=== PATIENT | female | born 1985 | race Hispanic/Latino ===

== ENCOUNTER 2017-01-02 16:37 | Emergency (ER) | payer MEDICAID, OTHER ==
[2017-01-02 16:48] VITALS: BP 115/75; PULSE 90; RESP 17; TEMP 99; O2SAT 99
--- NOTE | 2017-01-02 18:14 | C.PDOC ---
History Of Present Illness 31 y/o female presents to ED with complaints of left toe pain and swelling increased 1 week ago. Patient denies drainage, fever, streaking of foot or any other complaints at this time. Chief Complaint (Nursing): Lower Extremity Problem/Injury History Per: Patient History/Exam Limitations: no limitations Onset/Duration Of Symptoms: Days Current Symptoms Are (Timing): Still Present Past Medical History Reviewed: Historical Data, Nursing Documentation, Vital Signs Vital Signs: Last Vital Signs Temp 99.0 F 01/02/17 16:44 Pulse 90 01/02/17 16:44 Resp 17 01/02/17 16:44 BP 115/75 01/02/17 16:44 Pulse Ox 99 01/02/17 18:15 - Medical History PMH: Anxiety, Asthma (ALLERGIC), Depression, Gastritis, Hypercholesterolemia ( JUST DIAGNOSED), Kidney Stones (2007), Migraine, Pancreatitis, Chronic Kidney Disease Surgical History: Endoscopy - [facility] Procedures TETANUS TOXOID ADMINIST (07/03/14) Family History: States: Unknown Family Hx - Social History Hx Tobacco Use: No Hx Alcohol Use: No Hx Substance Use: No - Immunization History Hx Tetanus Toxoid Vaccination: No Hx Influenza Vaccination: Yes (2017) Hx Pneumococcal Vaccination: No Review Of Systems Except As Marked, All Systems Reviewed And Found Negative. Constitutional: Negative for: Fever, Chills Musculoskeletal: Positive for: Foot Pain Skin: Negative for: Rash Neurological: Negative for: Weakness, Numbness Physical Exam - Physical Exam Appears: Non-toxic, No Acute Distress Skin: Normal Color, Warm Head: Atraumatic, Normacephalic Cardiovascular: Rhythm Regular, No Murmur Respiratory: Normal Breath Sounds, No Rales, No Rhonchi, No Wheezing Extremity: Normal ROM, Capillary Refill (<2 seconds), No Deformity, Other (Left great toe has ingrown toe nail, slight flunctuance of medial aspect, no drainage , no erythema) Pulses: Left Dorsalis Pedis: Normal, Right Dorsalis Pedis: Normal Neurological/Psych: Oriented x3, Normal Motor, Normal Sensation, Normal Reflexes ED Course And Treatment O2 Sat by Pulse Oximetry: 99 (RA) Pulse Ox Interpretation: Normal Disposition - Disposition Referrals: [facility] Lorena Perez, [Non-Staff] - Disposition: HOME/ ROUTINE Disposition Time: 17:30 Condition: GOOD Additional Instructions: Thank you for letting us take care of you today. Your provider was Dr. Joshi. You were treated for in-grown toenail. The emergency medical care you received today was directed at your acute symptoms. If you were prescribed any medication, please fill it and take as directed. It may take several days for your symptoms to resolve. Return to the Emergency Department if your symptoms worsen, do not improve, or if you have any other problems. Please contact your doctor or call one of the physicians/clinics you have been referred to that are listed on the Patient Visit Information form that is included in your discharge packet. Bring any paperwork you were given at discharge with you along with any medications you are taking to your follow up visit. Our treatment cannot replace ongoing medical care by a primary care provider (PCP) outside of the emergency department. Thank you for allowing the Critical access hospital team to be part of your care today. Follow up with your doctor in 4-5 days if pain persists or redness travels to your foot. Prescriptions: Cephalexin [cephalexin] 500 mg PO BID #10 cap Instructions: Ingrown Nail (ED) - Clinical Impression Clinical Impression: Ingrown nail - Scribe Statement The provider has reviewed the documentation as recorded by the Scribe Roger Crump All medical record entries made by the Renetta were at my direction and personally dictated by me. I have reviewed the chart and agree that the record accurately reflects my personal performance of the history, physical exam, medical decision making, and the department course for this patient. I have also personally directed, reviewed, and agree with the discharge instructions and disposition.
== END 2017-01-02 17:42 | disposition home or self-care (01) ==
LOC: C.ER 16:37
DX: L60.0 Ingrowing nail (principal)

== ENCOUNTER 2017-03-08 16:49 | Emergency (ER) | payer MEDICAID, OTHER ==
[2017-03-08 16:53] VITALS: BP 122/72; PULSE 122; RESP 20; TEMP 99.1; O2SAT 98
--- NOTE | 2017-03-08 17:28 | C.PDOC ---
Time Seen by Provider: 03/08/17 17:13 Chief Complaint (Nursing): Abnormal Skin Integrity Past Medical History Vital Signs: Last Vital Signs Temp 99.1 F 03/08/17 16:50 Pulse 122 H 03/08/17 16:50 Resp 20 03/08/17 16:50 BP 122/72 03/08/17 16:50 Pulse Ox 98 03/08/17 16:50 - Medical History PMH: Anxiety, Asthma (ALLERGIC), Depression, Gastritis, Hypercholesterolemia ( JUST DIAGNOSED), Kidney Stones (2007), Migraine, Pancreatitis, Chronic Kidney Disease Surgical History: Endoscopy - [facility] Procedures TETANUS TOXOID ADMINIST (07/03/14) Family History: States: Unknown Family Hx - Social History Hx Tobacco Use: No Hx Alcohol Use: No Hx Substance Use: No - Immunization History Hx Tetanus Toxoid Vaccination: No Hx Influenza Vaccination: Yes (2016) Hx Pneumococcal Vaccination: No ED Course And Treatment O2 Sat by Pulse Oximetry: 98 Disposition - Disposition Forms: [facility] ([place])
--- NOTE | 2017-03-08 17:42 | C.PDOC ---
History Of Present Illness 32 yo female 25 wks come in for evaluation of painful mass over coccyx area gradually developed for past 4-5 days. Pt sts, noted some draining now from wound. Otherwise, pt denies fever, chills, abd. pain, N/V, denies change in BM or any other active complaints. Ambulate to Ed for evaluation, not in any apparent distress. Time Seen by Provider: 03/08/17 17:13 Chief Complaint (Nursing): Abnormal Skin Integrity History Per: Patient Onset/Duration Of Symptoms: Gradual Past Medical History Reviewed: Historical Data, Nursing Documentation, Vital Signs Vital Signs: Last Vital Signs Temp 99.1 F 03/08/17 16:50 Pulse 122 H 03/08/17 16:50 Resp 20 03/08/17 16:50 BP 122/72 03/08/17 16:50 Pulse Ox 98 03/08/17 16:50 - Medical History PMH: Anxiety, Asthma (ALLERGIC), Depression, Gastritis, Hypercholesterolemia ( JUST DIAGNOSED), Kidney Stones (2007), Migraine, Pancreatitis, Chronic Kidney Disease Surgical History: Endoscopy - [facility] Procedures TETANUS TOXOID ADMINIST (07/03/14) Family History: States: Unknown Family Hx - Social History Hx Tobacco Use: No Hx Alcohol Use: No Hx Substance Use: No - Immunization History Hx Tetanus Toxoid Vaccination: No Hx Influenza Vaccination: Yes (2016) Hx Pneumococcal Vaccination: No Review Of Systems Except As Marked, All Systems Reviewed And Found Negative. Constitutional: Negative for: Fever, Chills ENT: Negative for: Throat Pain Gastrointestinal: Negative for: Nausea, Vomiting, Abdominal Pain, Diarrhea, Constipation, Melena, Hematochezia, Hematemesis Genitourinary: Negative for: Incontinence Musculoskeletal: Negative for: Neck Pain, Back Pain Skin: Positive for: Lesions Neurological: Negative for: Weakness, Numbness Physical Exam - Physical Exam Appears: Well, Non-toxic, No Acute Distress Skin: Normal Color, Warm, Other ((+)small tender mass 2cm diameter over coccyx area, mild erythema, (+) flactulance with mod purulend discharge, self- draining. No proximal streaking.) Gastrointestinal/Abdominal: Other (Gravid) Rectal: Rectal Tone (good), No Hemorrhoids Back: No CVA Tenderness Extremity: No Pedal Edema, No Deformity Neurological/Psych: Oriented x3, Normal Speech ED Course And Treatment O2 Sat by Pulse Oximetry: 98 Pulse Ox Interpretation: Normal Progress Note: On re-eval, pt is afebrile, hemodynamicaly stable. non-toxic. Skin: exam c/w self-draining pilonidal cyst s/p needle aspiration. Wound cx- pending. Abx options discussed with pt, reports "stomach irritation with amoxicillin". Clindamycin offered, risk discussed according, pt understand and agrees. Pt advised to F/U with PMD or ED in 2 days for re-eavl. return if any new changes., - Incision & Drainage Of Abscess Prep Used: Betadine Procedure: Drained Pus (needle aspiration gauge #18 with 2ml drained pus), Cultures Obtained And Sent To Lab Disposition Counseled Patient/Family Regarding: Studies Performed, Diagnosis, Need For Followup, Rx Given - Disposition Referrals: at [facility] [Outside] Disposition: HOME/ ROUTINE Disposition Time: 17:46 Condition: STABLE Additional Instructions: warm salty water sitz baths Take antibiotic as prescribed Follow up with PMD or ED in 2 days for re-evaluation. Return to ED if any worsening or new changes. Prescriptions: Clindamycin [Cleocin] 300 mg PO TID #21 cap Instructions: Abscess Incision and Drainage (ED), Abscess (ED) Forms: [facility] ([place]) - Clinical Impression Clinical Impression: Pilonidal cyst
== END 2017-03-08 17:58 | disposition home or self-care (01) ==
LOC: C.ER 16:49
DX: L05.91 Pilonidal cyst without abscess (principal)

== ENCOUNTER 2017-08-17 07:50 | Emergency (ER) | payer MEDICAID, OTHER ==
[2017-08-17 07:56] VITALS: BMI 29.2
[2017-08-17] MEDS ORDERED: Sodium Chloride 0.9% 1,000 ML IV ONE (08:14)
--- NOTE | 2017-08-17 08:25 | C.PDOC ---
History Of Present Illness 32 yo female w/PMHx of anxiety come in for evaluation of Right flank pain developed 2 days ago radiating to Right mid/lower abdomen associated with nausea. Pt admits, previous hx of similar pain dx with kidney stones. Otherwise , pt denies fever, chills, headache, dizziness, neck pain, CP, SOB, V/D, UTI sx , hematuria. At present time, appears in severe pain. Time Seen by Provider: 08/17/17 08:03 Chief Complaint (Nursing): Back Pain History Per: Patient Past Medical History Reviewed: Historical Data, Nursing Documentation, Vital Signs Vital Signs: Last Vital Signs Temp 98.6 F 08/17/17 07:56 Pulse 87 08/17/17 11:35 Resp 18 08/17/17 11:35 BP 127/86 08/17/17 11:35 Pulse Ox 98 08/17/17 11:35 - Medical History PMH: Anxiety, Asthma (ALLERGIC), Depression, Gastritis, Hypercholesterolemia ( JUST DIAGNOSED), Kidney Stones (2007), Migraine, Pancreatitis, Chronic Kidney Disease Surgical History: Endoscopy - [facility] Procedures TETANUS TOXOID ADMINIST (07/03/14) Family History: States: Unknown Family Hx - Social History Hx Tobacco Use: No Hx Alcohol Use: No Hx Substance Use: No - Immunization History Hx Tetanus Toxoid Vaccination: No Hx Influenza Vaccination: No (2016) Hx Pneumococcal Vaccination: No Review Of Systems Except As Marked, All Systems Reviewed And Found Negative. Constitutional: Negative for: Fever, Chills ENT: Negative for: Throat Pain, Throat Swelling Cardiovascular: Negative for: Chest Pain, Palpitations Respiratory: Negative for: Cough, Shortness of Breath, Wheezing Gastrointestinal: Positive for: Nausea, Abdominal Pain. Negative for: Vomiting , Diarrhea Genitourinary: Negative for: Dysuria, Frequency, Incontinence Musculoskeletal: Positive for: Back Pain. Negative for: Neck Pain Skin: Negative for: Rash Neurological: Negative for: Altered Mental Status Physical Exam - Physical Exam Appears: Well, Non-toxic, No Acute Distress Skin: Normal Color, Warm, Dry, No Rash Head: Normacephalic Eye(s): bilateral: PERRL Ear(s): Bilateral: Normal Nose: No Discharge Oral Mucosa: Moist, No Drooling Tongue: Normal Appearing Lips: Normal Appearing Throat: No Erythema, No Drooling Neck: Supple Cardiovascular: Rhythm Regular, No Murmur Respiratory: No Decreased Breath Sounds, No Accessory Muscle Use, No Stridor, No Wheezing Gastrointestinal/Abdominal: Soft, Tenderness (right upper and mid), No Distention, No Guarding, No Rebound Back: No CVA Tenderness Extremity: Normal ROM, No Deformity, No Swelling Neurological/Psych: Oriented x3, Normal Speech ED Course And Treatment - Laboratory Results Result Diagrams: 08/17/17 08:58 08/17/17 08:58 Lab Interpretation: No Acute Changes O2 Sat by Pulse Oximetry: 98 Pulse Ox Interpretation: Normal - CT Scan/US CT abd/pelvis Other Rad Studies (CT/US): Radiology Report Reviewed CT/US Interpretation: COMPARISON: Comparison made with CT scan abdomen pelvis 12/01/2015. TECHNIQUE: Contiguous axial images of the abdomen and pelvis. Oral contrast was administered. No IV contrast given. Coronal and Sagittal reformats generated. Radiation dose: Total exam DLP = . This CT exam was performed using one or more of the following dose reduction techniques: Automated exposure control, adjustment of the mA and/or kV according to patient size, and/or use of iterative reconstruction technique. FINDINGS: LOWER THORAX : No focal consolidation. No evidence of effusion or basilar pneumothorax. Heart size within range of normal. LIVER: Unremarkable. No gross lesion or ductal dilatation. GALLBLADDER AND BILE DUCTS: Unremarkable. PANCREAS: Unremarkable. No mass. No ductal dilatation. SPLEEN: The spleen is mildly enlarged measuring 13 cm in AP dimension. No splenic mass or collection. ADRENALS: No adrenal lesions. KIDNEYS AND URETERS: There is mild right-sided hydronephrosis secondary to a 6 mm calculus in the mid to distal right ureter at the level of the sacral promontory. Punctate nonobstructing calcification lower pole right kidney. . . BLADDER: Grossly unremarkable. Urinary bladder is incompletely distended which may account for slight thick-walled appearance. No evidence of intraluminal urinary bladder calculi. REPRODUCTIVE: Unremarkable. APPENDIX: No evidence of acute appendicitis. BOWEL: Evaluation of the bowel is limited due to the lack of oral contrast material. . No evidence of acute mechanical bowel obstruction. PERITONEUM: Unremarkable. No fluid collection. No free air. LYMPH NODES: Unremarka there does appear to be a few small to medium-sized mesenteric lymph nodes in the mid and right lower quadrant of the abdomen nonspecific. VASCULATURE: Unremarkable. No aortic aneurysm. BONES: No fracture or destructive lesion. OTHER FINDINGS: None. IMPRESSION: There is a small approximately 6 mm calculus within the mid to lower ureter at the level of the sacral promontory. Progress Note: Pt was OBS in ED for 4 hours. On re-evaluation, pt reports moderate improvement in pain. Pt is afebrile, hemodynamicaly stable. Non- toxic. Tolerate Po well in ED. ENT: no acute findings. neck: Supple. Lungs: CTA B/L, BS equal B/L. Abd: benign, (-) guarding, (-) rebound. Back: (-) CVA tenderness. Blood work review, mild leukocytosis. Electrolytes- normal. CT abd/ pelvis (+) 6mm calculus Right mid/lower ureter at leverl sacral promontory. results review and discussed with patient. Pt has clinical findings c/w nephrolitiasis, righ. Pt advised on course of ds. Ref. to f/u with Urology in 2 -3 days for re-eavl. return if any new changes. Disposition Counseled Patient/Family Regarding: Studies Performed, Diagnosis, Need For Followup, Rx Given - Disposition Referrals: Viktor Sanford MD [Medical Doctor] - Vito Kilgore MD [Staff Provider] - Disposition: HOME/ ROUTINE Disposition Time: 12:55 Condition: STABLE Additional Instructions: ENCOURAGE FLUIDS URINE STRAIN TAKE MEDICATION PRESCRIBED FOLLOW UP WITH UROLOGY IN 2-3 DAYS FOR RE-EVALUATION.' RETURN TO ED IF ANY WORSENING OR NEW CHANGES. Prescriptions: traMADol [Ultram] 50 mg PO TID #7 tab Instructions: Kidney Stones (ED) Forms: [facility] ([place]) - Clinical Impression Clinical Impression: Nephrolithiasis
[2017-08-17] MEDS ORDERED: Sodium Chloride 0.9% 1,000 ML ONE (08:51)
[2017-08-17 09:09] LABS: BASO # 0.1 K/uL (0.0-0.2); BASO % 0.8 % (0.0-2.0); EOS # 0.3 K/uL (0.0-0.7); EOS % 2.3 % (0.0-4.0); HEMOGLOBIN 13.9 g/dL (11.0-16.0); LYMPH # 1.4 K/uL (1.0-4.3); LYMPH % 12.8 % (20.0-40.0); MEAN CELL VOLUME 90.2 fL (81.0-99.0); MEAN CORPUSCULAR HEMOGLOBIN 31.3 pg (27.0-31.0); MEAN CORPUSCULAR HGB CONC 34.6 g/dL (33.0-37.0); MEAN PLATELET VOLUME 7.8 fL (7.2-11.7); MONO # 0.7 K/uL (0.0-0.8); MONO % 6.4 % (0.0-10.0); NEUT # 8.7 K/uL (1.8-7.0); NEUT % 77.7 % (50.0-75.0); RBC 4.43 Mil/uL (3.80-5.20); RED CELL DISTRIBUTION WIDTH 13.6 % (11.5-14.5); WHITE BLOOD COUNT 11.2 K/uL (4.8-10.8)
[2017-08-17 09:15] LABS: ALB/GLOB RATIO 1.2 (1.0-2.1); ALBUMIN 4.4 g/dL (3.5-5.0); ALT/SGPT 51 U/L (9-52); AST/SGOT 27 U/L (14-36); BLOOD UREA NITROGEN 19 mg/dL (7-17); CALCIUM 9.3 mg/dl (8.6-10.4); GFR AFRICAN-AMERICAN > 60; GFR NON-AFRICAN AMERICAN > 60
--- NOTE | 2017-08-17 11:00 | CT ---
PROCEDURE: CT scan abdomen and pelvis dated 08/17/2017 HISTORY: Right flank, Right abd. pain COMPARISON: Comparison made with CT scan abdomen pelvis 12/01/2015. TECHNIQUE: Contiguous axial images of the abdomen and pelvis. Oral contrast was administered. No IV contrast given. Coronal and Sagittal reformats generated. Radiation dose: Total exam DLP = . This CT exam was performed using one or more of the following dose reduction techniques: Automated exposure control, adjustment of the mA and/or kV according to patient size, and/or use of iterative reconstruction technique. FINDINGS: LOWER THORAX: No focal consolidation. No evidence of effusion or basilar pneumothorax. Heart size within range of normal. LIVER: Unremarkable. No gross lesion or ductal dilatation. GALLBLADDER AND BILE DUCTS: Unremarkable. PANCREAS: Unremarkable. No mass. No ductal dilatation. SPLEEN: The spleen is mildly enlarged measuring 13 cm in AP dimension. No splenic mass or collection ADRENALS: No adrenal lesions. KIDNEYS AND URETERS: There is mild right-sided hydronephrosis secondary to a 6 mm calculus in the mid to distal right ureter at the level of the sacral promontory. Punctate nonobstructing calcification lower pole right kidney. . . BLADDER: Grossly unremarkable. Urinary bladder is incompletely distended which may account for slight thick-walled appearance. No evidence of intraluminal urinary bladder calculi. REPRODUCTIVE: Unremarkable. APPENDIX: No evidence of acute appendicitis BOWEL: Evaluation of the bowel is limited due to the lack of oral contrast material. . No evidence of acute mechanical bowel obstruction. PERITONEUM: Unremarkable. No fluid collection. No free air. LYMPH NODES: Unremarka there does appear to be a few small to medium-sized mesenteric lymph nodes in the mid and right lower quadrant of the abdomen nonspecific. VASCULATURE: Unremarkable. No aortic aneurysm. BONES: No fracture or destructive lesion. OTHER FINDINGS: None. IMPRESSION: There is a small approximately 6 mm calculus within the mid to lower ureter at the level of the sacral promontory.
[2017-08-17 11:28] LABS: SQUAMOUS EPITHIAL 3 /hpf (0-5); URINE BACTERIA OCC (<OCC); URINE BILIRUBIN NEGATIVE (NEGATIVE); URINE BLOOD 3+ (NEGATIVE); URINE CLARITY Hazy (Clear); URINE COLOR Red (YELLOW); URINE GLUCOSE (UA) NORMAL (Normal); URINE LEUKOCYTE ESTERASE 2+ Leu/uL (Negative); URINE NITRATE NEGATIVE (NEGATIVE); URINE PROTEIN 2+ mg/dL (NEGATIVE); URINE UROBILINOGEN NORMAL mg/dL (0.2-1.0)
[2017-08-17] MEDS ORDERED: Morphine 4 MG/ML VIAL ONE (11:40)
[2017-08-17] MEDS ORDERED: cefTRIAXone IV 1 gm in Dextros 50 ML IVPB ONE (12:01)
[2017-08-17 12:07] VITALS: PULSE 87
[2017-08-17 14:37] VITALS: BP 121/76; RESP 20; TEMP 98.7; O2SAT 99
== END 2017-08-17 14:36 | disposition home or self-care (01) ==
LOC: C.ER 07:50
DX: N20.0 Calculus of kidney (principal); E78.00 Pure hypercholesterolemia, unspecified; N18.9 Chronic kidney disease, unspecified
CPT/HCPCS: 74176; 80053; 81001; 84703; 85025; 87086; 96374; 96375; 96376; 99285; J0696; J1885; J2270; J2405; J7040

== ENCOUNTER 2017-08-19 10:50 | Inpatient (IN) | payer OTHER ==
[2017-08-19 10:50] VITALS: BMI 29.2
[2017-08-19] MEDS ORDERED: Sodium Chloride 0.9% 1,000 ML IV ONE (11:21)
[2017-08-19] MEDS ORDERED: Sodium Chloride 0.9% 1,000 ML ONE (11:41)
[2017-08-19] MEDS ORDERED: Morphine 4 MG/ML VIAL ONE (11:47)
[2017-08-19 11:50] LABS: HEMOGLOBIN 13.4 g/dL (11.0-16.0); MEAN CELL VOLUME 89.3 fL (81.0-99.0); MEAN CORPUSCULAR HEMOGLOBIN 31.2 pg (27.0-31.0); RBC 4.31 Mil/uL (3.80-5.20); RED CELL DISTRIBUTION WIDTH 13.2 % (11.5-14.5); WHITE BLOOD COUNT 8.8 K/uL (4.8-10.8)
[2017-08-19 12:03] LABS: URINE BILIRUBIN NEGATIVE (NEGATIVE); URINE BLOOD 3+ (NEGATIVE); URINE CLARITY Hazy (Clear); URINE GLUCOSE (UA) NORMAL (Normal); URINE LEUKOCYTE ESTERASE 1+ Leu/uL (Negative); URINE NITRATE NEGATIVE (NEGATIVE); URINE PROTEIN 2+ mg/dL (NEGATIVE); URINE UROBILINOGEN NORMAL mg/dL (0.2-1.0)
[2017-08-19 12:19] LABS: URINE BACTERIA OCC (<OCC)
[2017-08-19 12:24] LABS: ALB/GLOB RATIO 1.4 (1.0-2.1); ALBUMIN 4.2 g/dL (3.5-5.0); ALT/SGPT 33 U/L (9-52); AST/SGOT 21 U/L (14-36); BLOOD UREA NITROGEN 14 mg/dL (7-17); CALCIUM 9.6 mg/dl (8.6-10.4); GFR AFRICAN-AMERICAN > 60; GFR NON-AFRICAN AMERICAN > 60
[2017-08-19 12:24] LABS: SQUAMOUS EPITHIAL 25 /hpf (0-5)
[2017-08-19 12:25] LABS: URINE COLOR Red (YELLOW)
--- NOTE | 2017-08-19 14:11 | C.PDOC ---
History Of Present Illness 32 y/o female presents complaining of right flank pain radiating to her right groin, ongoing for the last few days. Was evaluated on 08/17 and diagnosed with a kidney stone. Patient reports the pain is persistent, and associated with nausea. No vomiting or fever. She noticed hematuria starting this AM. Patient has a history of kidney stones in the past with hospitalization. Time Seen by Provider: 08/19/17 11:18 Chief Complaint (Nursing): Back Pain History Per: Patient History/Exam Limitations: no limitations Onset/Duration Of Symptoms: Days (x3-4) Current Symptoms Are (Timing): Still Present Past Medical History Reviewed: Historical Data, Nursing Documentation, Vital Signs Vital Signs: Last Vital Signs Temp 98 F 08/19/17 17:30 Pulse 69 08/19/17 17:30 Resp 13 08/19/17 17:30 BP 124/69 08/19/17 17:30 Pulse Ox 97 08/19/17 17:30 - Medical History PMH: Anxiety, Asthma (ALLERGIC), Depression, Gastritis, Hypercholesterolemia, Kidney Stones (2007), Migraine, Pancreatitis, Chronic Kidney Disease Surgical History: Endoscopy - [facility] Procedures TETANUS TOXOID ADMINIST (07/03/14) Family History: States: Unknown Family Hx - Social History Hx Tobacco Use: No Hx Alcohol Use: No Hx Substance Use: No - Immunization History Hx Tetanus Toxoid Vaccination: No Hx Influenza Vaccination: Yes (2016) Hx Pneumococcal Vaccination: No Review Of Systems Constitutional: Negative for: Fever, Chills Gastrointestinal: Positive for: Nausea. Negative for: Vomiting Genitourinary: Positive for: Hematuria Musculoskeletal: Positive for: Back Pain (right flank radiating to right groin) Physical Exam - Physical Exam Appears: Non-toxic, In Acute Distress (painful distress) Skin: Normal Color, Warm, Dry Head: Atraumatic, Normacephalic Eye(s): bilateral: Normal Inspection, EOMI Nose: Normal Oral Mucosa: Moist Neck: Normal ROM, Supple Chest: Symmetrical Cardiovascular: Rhythm Regular Respiratory: Normal Breath Sounds, No Accessory Muscle Use Gastrointestinal/Abdominal: Soft, Tenderness (Right pelvic tenderness) Back: CVA Tenderness (right) Extremity: Normal ROM Extremity: Bilateral: Atraumatic, Normal Color And Temperature, Normal ROM Neurological/Psych: Oriented x3, Normal Speech ED Course And Treatment - Laboratory Results Result Diagrams: 08/19/17 11:39 08/19/17 11:39 O2 Sat by Pulse Oximetry: 99 (RA) Pulse Ox Interpretation: Normal Progress Note: Labs ordered. 30 mg Toradol given. On reevaluation, patient continuing to complain of pain. Given 4mg Morphine. On reevaluation, pain improved minimally. Case discussed with urology on-call, Dr. Kilgore, agreed upon admission. Disposition - Disposition Disposition: HOSPITALIZED Disposition Time: 13:41 Condition: STABLE - Clinical Impression Clinical Impression: Nephrolithiasis, Renal colic - PA / [employer] / Resident Statement MD/DO has reviewed & agrees with the documentation as recorded. - Scribe Statement The provider has reviewed the documentation as recorded by the Scribe (Jaylyn Acuna) All medical record entries made by the Scribe were at my direction and personally dictated by me. I have reviewed the chart and agree that the record accurately reflects my personal performance of the history, physical exam, medical decision making, and the department course for this patient. I have also personally directed, reviewed, and agree with the discharge instructions and disposition.
[2017-08-19] MEDS ORDERED: Midazolam 2 MG/2 ML VIAL ONE (15:23)
[2017-08-19] MEDS ORDERED: Propofol 10 mg/ml Inj (20 ML) ONE (15:24)
[2017-08-19] MEDS ORDERED: Ciprofloxacin 400mg/200ml D5W 400 MG/200 ML BAG IVPB ONE (16:04)
[2017-08-19] MEDS ORDERED: Iohexol 240 (50 ml) ONE (16:04)
[2017-08-19] MEDS ORDERED: Lidocaine 2% Jelly (Uro-Jet) ONE (16:04)
--- NOTE | 2017-08-19 17:32 | RAD ---
HISTORY: RT. URETER STONE COMPARISON: CT abdomen pelvis without contrast performed 08/17/17 FINDINGS: BOWEL: Nonobstructive bowel gas pattern. Moderate constipation. 5 mm hyperdensity noted inferior to the right sacrum. BONES: No acute osseous abnormality is detected. OTHER FINDINGS: None. IMPRESSION: 5 mm hyperdensity noted inferior to the right sacrum, possibly a distal ureteral calculus. Moderate constipation.
[2017-08-19 17:53] VITALS: BP 124/69; PULSE 69; RESP 13; TEMP 98
[2017-08-19] MEDS ORDERED: HYDROmorphone 0.5 mg/0.5 ml ISec IVP PRN (18:00)
[2017-08-19 18:08] VITALS: O2SAT 99
--- NOTE | 2017-08-20 04:31 | OP ---
PROCEDURE DATE: PROCEDURE: Cystoscopy, insertion of right ureteral stent. DESCRIPTION OF PROCEDURE: The patient prepped and draped in usual manner with general anesthesia given, a mid ureteral calculus was noted just above the sacrum. With the patient in place, with the lens in position, a #21 cystourethroscope was introduced into the bladder. The 0.035 wire was then put through the right ureter to the kidney, double J-stent was then placed over the wire and the wire removed. Good position of the stent. At this point, the calculus could not be noted over the sacrum. The patient tolerated the procedure well, left the OR in good condition. Vito Kilgore MD
--- NOTE | 2017-08-20 13:47 | RAD ---
PROCEDURE: Intraoperative Fluoroscopy. HISTORY: RT. URETER STONE FINDINGS: Fluoroscopic assistance was provided for right nephro ureteral stent placement. Please refer to the operative report from MARILU Pham.
== END 2017-08-19 18:10 | disposition home or self-care (01) | DRG 323 ==
LOC: C.ER 10:50 → C.9E 13:41 → C.6T 17:12
PROVIDERS: ADMIT Urology; ATTEND Urology
PROC: 0T768DZ Dilation of Right Ureter with Intraluminal Device, Via Natural or Artificial Opening Endoscopic (ICD-10-PCS; principal; 2017-08-19 15:30)
DX: N20.1 Calculus of ureter (principal); N18.9 Chronic kidney disease, unspecified; E78.00 Pure hypercholesterolemia, unspecified; J45.909 Unspecified asthma, uncomplicated; F41.9 Anxiety disorder, unspecified; F32.9 Major depressive disorder, single episode, unspecified

== ENCOUNTER 2017-08-20 19:03 | Emergency (ER) | payer OTHER ==
[2017-08-20 19:03] VITALS: BMI 29.2
[2017-08-20] MEDS ORDERED: Sodium Chloride 0.9% 1,000 ML ONE ×2 (21:25→23:42)
[2017-08-20] MEDS ORDERED: Sodium Chloride 0.9% 1,000 ML IV ONE ×3 (21:29→23:57)
--- NOTE | 2017-08-20 21:39 | C.PDOC ---
History Of Present Illness Patient presents to the ER with a Hx of renal colic presents with a complaint of right flank pain. Patient had a stent placed yesterday by Dr. Kilgore and since then has had worsening pain and worsening dysuria. Denies fever, chills, nausea, or vomiting. Time Seen by Provider: 08/20/17 21:38 Chief Complaint (Nursing): Female Genitourinary History Per: Patient History/Exam Limitations: no limitations Onset/Duration Of Symptoms: Days Current Symptoms Are (Timing): Still Present Severity: Moderate Pain Scale Rating Of: 6 Quality Of Discomfort: Unable To Describe, Sharp, Pressure, Stabbing Associated Symptoms: Back Pain (right flank), Urinary Symptoms (dysuria). denies: Fever, Chills, Nausea, Vomiting Alleviating Factors: None Recent travel outside of the [place]: No Additional History Per: Patient Abnormal Vaginal Bleeding: No Past Medical History Reviewed: Historical Data, Nursing Documentation, Vital Signs Vital Signs: Last Vital Signs Temp 98.8 F 08/20/17 20:31 Pulse 82 08/20/17 20:31 Resp 18 08/20/17 20:31 BP 146/84 08/20/17 20:31 Pulse Ox 97 08/20/17 21:55 - Medical History PMH: Anxiety, Asthma (ALLERGIC), Depression, Gastritis, Hypercholesterolemia, Kidney Stones (2008), Migraine, Pancreatitis, Chronic Kidney Disease Surgical History: Endoscopy - [facility] Procedures TETANUS TOXOID ADMINIST (07/03/14) Family History: States: No Known Family Hx - Social History Hx Tobacco Use: No Hx Alcohol Use: No Hx Substance Use: No - Immunization History Hx Tetanus Toxoid Vaccination: No Hx Influenza Vaccination: Yes (2017) Hx Pneumococcal Vaccination: No Review Of Systems Constitutional: Negative for: Fever, Chills Cardiovascular: Negative for: Chest Pain Respiratory: Negative for: Shortness of Breath Gastrointestinal: Negative for: Nausea, Vomiting Genitourinary: Positive for: Dysuria Musculoskeletal: Positive for: Back Pain (right flank) Skin: Negative for: Rash Neurological: Negative for: Weakness Psych: Negative for: Anxiety Physical Exam - Physical Exam Appears: Non-toxic Skin: Warm, Dry Head: Normacephalic Eye(s): bilateral: Normal Inspection Oral Mucosa: Moist Neck: Supple Chest: Symmetrical, No Tenderness Cardiovascular: Rhythm Regular Respiratory: No Rales, No Rhonchi, No Wheezing Gastrointestinal/Abdominal: Soft, No Tenderness Back: CVA Tenderness (r), Other (Right flank pain) Extremity: Normal ROM Extremity: Bilateral: Atraumatic Neurological/Psych: Oriented x3 Gait: Steady ED Course And Treatment - Laboratory Results Result Diagrams: 08/20/17 22:34 08/20/17 22:34 O2 Sat by Pulse Oximetry: 97 (Room air) Pulse Ox Interpretation: Normal Progress Note: Blood work and urinalysis ordered. IV fluids and toradol administered. Disposition Discussed With Dr.: Alley Suazo Comment: accepted the pt onhis service and took over the care at 11:56PM Doctor Will See Patient In The: Hospital Counseled Patient/Family Regarding: Studies Performed, Diagnosis - Disposition Disposition: HOSPITALIZED Disposition Time: 21:39 Condition: FAIR Forms: [facility] (Mongolian) - Clinical Impression Clinical Impression: Renal colic, Abdominal pain, Kidney stone on right side, History of renal stent - Scribe Statement The provider has reviewed the documentation as recorded by the Scribasif Chiu All medical record entries made by the Scribe were at my direction and personally dictated by me. I have reviewed the chart and agree that the record accurately reflects my personal performance of the history, physical exam, medical decision making, and the department course for this patient. I have also personally directed, reviewed, and agree with the discharge instructions and disposition. Decision To Admit - Pt Status Changed To: Hospital Disposition Of: Inpatient - Admit Certification Admit to Inpatient:: After my assessment, the patient will require hospitalization for at least two midnights. This is because of the severity of symptoms shown, intensity of services needed, and/or the medical risk in this patient being treated as an outpatient. - InPatient: Physician Admission Certification: I certify that this patient requires 2 or more midnights of care for the following reason:: After my assessment, the patient will require hospitalization for at least two midnights. This is because of the severity of symptoms shown, intensity of services needed, and/or the medical risk in this patient being treated as an outpatient. - . Bed Request Type: Regular Admitting Physician: Alley Suazo Patient Diagnosis: Renal colic, Abdominal pain, Kidney stone on right side, History of renal stent
[2017-08-20 22:39] LABS: BASO # 0.1 K/uL (0.0-0.2); BASO % 0.6 % (0.0-2.0); EOS # 0.4 K/uL (0.0-0.7); EOS % 4.2 % (0.0-4.0); HEMOGLOBIN 13.9 g/dL (11.0-16.0); LYMPH # 2.7 K/uL (1.0-4.3); LYMPH % 29.8 % (20.0-40.0); MEAN CELL VOLUME 89.3 fL (81.0-99.0); MEAN CORPUSCULAR HEMOGLOBIN 31.6 pg (27.0-31.0); MEAN CORPUSCULAR HGB CONC 35.4 g/dL (33.0-37.0); MONO # 0.7 K/uL (0.0-0.8); MONO % 8.1 % (0.0-10.0); NEUT # 5.2 K/uL (1.8-7.0); NEUT % 57.3 % (50.0-75.0); NRBC % 0.1 % (0.0-2.0); RBC 4.41 Mil/uL (3.80-5.20); RED CELL DISTRIBUTION WIDTH 13.4 % (11.5-14.5); WHITE BLOOD COUNT 9.1 K/uL (4.8-10.8)
[2017-08-20 22:53] LABS: BLOOD UREA NITROGEN 13 mg/dL (7-17); CALCIUM 9.6 mg/dl (8.6-10.4); GFR AFRICAN-AMERICAN > 60; GFR NON-AFRICAN AMERICAN > 60
[2017-08-20] MEDS ORDERED: HYDROmorphone 1 mg/ml ISec IVP STA (22:55)
[2017-08-20] MEDS ORDERED: HYDROmorphone 0.5 mg/0.5 ml ISec ONE (23:02)
--- NOTE | 2017-08-20 23:52 | US ---
EXAM: US Retroperitoneal Limited, Renal CLINICAL HISTORY: 32 years old, female; Pain; Abdominal pain; Generalized; Prior surgery; Surgery date: Post-operative (0-2 days); Surgery type: Rt kid stent; Additional info: Right kidney ag, S/P stent, poss hydro TECHNIQUE: Real-time ultrasound of the retroperitoneum (limited) with image documentation. COMPARISON: No relevant prior studies available. FINDINGS: Right kidney: Normal echogenicity. 0.4 cm calculus. No mass. No hydronephrosis. Left kidney: Normal echogenicity. 0.2 cm calculus. No mass. No hydronephrosis. Bladder: Unremarkable. RIGHT ureteral jet not visualized. LEFT ureteral jet visualized. Pre-void volume = 149 cc. Post void volume = 2 cc. Other findings: RIGHT ureteral stent. IMPRESSION: 1. Nonobstructing renal calculi. 2. Incidental/non-acute findings are described above.
[2017-08-21] MEDS ORDERED: Albuterol HFA 90 mcg/actuation (8 g) IH PRN (00:16)
[2017-08-21 02:44] LABS: HCG,QUALITATIVE URINE NEGATIVE (NEGATIVE)
[2017-08-21 02:53] LABS: SQUAMOUS EPITHIAL 1 /hpf (0-5); URINE BACTERIA RARE (<OCC); URINE BILIRUBIN NEGATIVE (NEGATIVE); URINE BLOOD 3+ (NEGATIVE); URINE CALCIUM OXALATE CRYSTALS FEW /hpf (<OCC); URINE COLOR Red (YELLOW); URINE GLUCOSE (UA) NORMAL (Normal); URINE LEUKOCYTE ESTERASE NEG Leu/uL (Negative); URINE NITRATE NEGATIVE (NEGATIVE); URINE PROTEIN NEGATIVE (NEGATIVE); URINE UROBILINOGEN NORMAL mg/dL (0.2-1.0)
[2017-08-21 02:58] LABS: URINE CLARITY Hazy (Clear)
[2017-08-21] MEDS ORDERED: HYDROmorphone 0.5 mg/0.5 ml ISec ONE (04:41)
[2017-08-21] MEDS: HYDROmorphone 1 mg/ml ISec IVP PRN ×2 (04:48→09:08)
[2017-08-21] MEDS ORDERED: Moxifloxacin IV 400mg/250ml NS 400 MG/250 ML BAG IVPB SCH (08:00)
[2017-08-21] MEDS ORDERED: Pantoprazole 40 mg EC Tab PO SCH (10:00)
[2017-08-21] MEDS ORDERED: Sodium Chloride 0.9% 1,000 ML IV SCH (11:30)
--- NOTE | 2017-08-21 11:49 | US ---
HISTORY: Abdominal pain,S/P stent insertion COMPARISON: CT abdomen and pelvis without contrast performed 08/17/17 TECHNIQUE: Sonographic evaluation of the abdomen. FINDINGS: LIVER: Measures 15.0 cm in sagittal dimension. Echogenic liver may be seen in setting of hepatic parenchymal disease or fatty infiltration. No focal hepatic mass identified. The main portal vein appears patent with normal directional flow. No intrahepatic bile duct dilatation. GALLBLADDER: No gallstones. No gallbladder wall thickening. Negative sonographic Ramirez's sign as assessed by the office cleaner. COMMON BILE DUCT: Measures 4 mm. PANCREAS: Not well visualized. RIGHT KIDNEY: Measures 11.6 x 4.9 x 5.5cm. No obstructing calculus or hydronephrosis identified. Partially imaged right ureteral stent. LEFT KIDNEY: Measures 12.4 x 5.4 x 5.5cm. No obstructing calculus or hydronephrosis identified. SPLEEN: Measures approximately 11.4 cm. AORTA: Limited views appear unremarkable. IVC: Limited views appear unremarkable. OTHER FINDINGS: None. IMPRESSION: Echogenic liver may be seen in setting of hepatic parenchymal disease or fatty infiltration. Right ureteral stent partially imaged.
[2017-08-21] MEDS ORDERED: Albuterol 0.083% Inhal Sol (2.5 mg/3 mL) UD INH PRN (13:49)
[2017-08-21] MEDS ORDERED: cefTRIAXone 1 gm 1 GM/100 ML BAG IVPB SCH (14:00)
[2017-08-21 16:19] VITALS: BP 116/78; PULSE 91; RESP 20; TEMP 97.4; O2SAT 98
--- NOTE | 2017-08-21 17:10 | CP.PCM.HP ---
Past Patient History - Infectious Disease Hx of Infectious Diseases: None - Past Medical History & Family History Past Medical History?: Yes - Past Social History Smoking Status: Light Smoker < 10 Cigarettes Daily - CARDIAC Hx Hypercholesterolemia: Yes - PULMONARY Hx Asthma: Yes (ALLERGIC) - NEUROLOGICAL Hx Migraine: Yes - HEENT Hx HEENT Problems: Yes (SEE COMMENT) Other/Comment: wears glasses all the time, deviated septum - RENAL Hx Chronic Kidney Disease: Yes Hx Kidney Stones: Yes (2008) - ENDOCRINE/METABOLIC Hx Endocrine Disorders: No - HEMATOLOGICAL/ONCOLOGICAL Hx Blood Disorders: No - INTEGUMENTARY Hx Dermatological Problems: No - MUSCULOSKELETAL/RHEUMATOLOGICAL Hx Musculoskeletal Disorders: No - GASTROINTESTINAL Hx Gastritis: Yes Hx Pancreatitis: Yes - GENITOURINARY/GYNECOLOGICAL Hx Genitourinary Disorders: No Hx Urinary Tract Infection: Yes Other/Comment: ovarian cysts - PSYCHIATRIC Hx Anxiety: Yes Hx Depression: Yes Hx Substance Use: No - SURGICAL HISTORY Other/Comment: RIGHT RENAL STENT 08/19/17 - ANESTHESIA Hx Anesthesia: Yes Hx Anesthesia Reactions: No Hx Malignant Hyperthermia: No Meds Allergies/Adverse Reactions: Allergies Allergy/AdvReac Type Severity Reaction Status Date / Time PETS Allergy CONGESTION Uncoded 08/20/17 20:30 Physical Exam - Constitutional Appears: Well - Head Exam Head Exam: ATRAUMATIC, NORMAL INSPECTION, NORMOCEPHALIC - Eye Exam Eye Exam: EOMI, Normal appearance, PERRL Pupil Exam: NORMAL ACCOMODATION, PERRL - ENT Exam ENT Exam: Mucous Membranes Moist, Normal Exam - Neck Exam Neck exam: Positive for: Normal Inspection - Respiratory Exam Respiratory Exam: Decreased Breath Sounds - Cardiovascular Exam Cardiovascular Exam: REGULAR RHYTHM, +S1, +S2 - GI/Abdominal Exam GI & Abdominal Exam: Diminished Bowel Sounds, Soft - Rectal Exam Rectal Exam: Deferred Results - Vital Signs Recent Vital Signs: Last Vital Signs Temp 97.4 F L 08/21/17 16:18 Pulse 91 H 08/21/17 16:18 Resp 20 08/21/17 16:18 BP 116/78 08/21/17 16:18 Pulse Ox 98 08/21/17 16:18 - Labs Result Diagrams: 08/20/17 22:34 08/20/17 22:34 Labs: Laboratory Results - last 24 hr 08/20/17 08/20/17 08/21/17 22:34 22:34 02:25 WBC 9.1 RBC 4.41 Hgb 13.9 Hct 39.4 MCV 89.3 MCH 31.6 H MCHC 35.4 RDW 13.4 Plt Count 347 MPV 8.0 Neut % (Auto) 57.3 Lymph % (Auto) 29.8 [place] % (Auto) 8.1 Eos % (Auto) 4.2 H Baso % (Auto) 0.6 Neut # (Auto) 5.2 Lymph # (Auto) 2.7 [place] # (Auto) 0.7 Eos # (Auto) 0.4 Baso # (Auto) 0.1 Sodium 138 Potassium 4.0 Chloride 100 Carbon Dioxide 23 Anion Gap 20 BUN 13 Creatinine 0.7 Est GFR ( Amer) > 60 Est GFR (Non-Af Amer) > 60 Random Glucose 102 Calcium 9.6 Urine Color Red Urine Clarity Hazy Urine pH 8.0 Ur Specific [place] 1.005 Urine Protein Negative Urine Glucose (UA) Normal Urine Ketones Negative Urine Blood 3+ H Urine Nitrate Negative Urine Bilirubin Negative Urine Urobilinogen Normal Ur Leukocyte Esterase Neg Urine WBC (Auto) 3 Urine RBC (Auto) 148 H Ur Squamous Epith Cells 1 Calcium Oxalate Crystal Few H Urine Bacteria Rare Urine HCG, Qual Negative
[2017-08-21] MEDS ORDERED: HYDROmorphone 1 mg/5ml IVP PRN (18:00)
[2017-08-23] MEDS ORDERED: Pneumococcal 23-Valent Vaccine IM ONE (10:00)
[2017-08-23] MEDS ORDERED: Influenza Vaccine 60 mcg/0.5 mL SYR (4YR UP) IM ONE (10:00)
== END 2017-08-21 16:41 | disposition home or self-care (01) ==
LOC: SUPCPDRO 19:03 → C.ER 19:03 → C.9E 23:57 → UNDOADMIN 23:57 → UNDODISIN 08-21 16:40 → C.ER 08-21 16:41
DX: N20.0 Calculus of kidney (principal); R10.9 Unspecified abdominal pain; Z87.442 Personal history of urinary calculi; Z96.0 Presence of urogenital implants
CPT/HCPCS: 76700; 76770; 76857; 80048; 81001; 84703; 85025; 87086; 96361; 96374; 96375; 96376; 99285; J1170; J1885; J2280; J2405; J7040

== ENCOUNTER 2017-08-24 11:13 | Emergency (ER) | payer OTHER ==
[2017-08-24 11:20] VITALS: BMI 26.7
[2017-08-24 11:24] VITALS: TEMP 97.5
[2017-08-24] MEDS ORDERED: Sodium Chloride 0.9% 1,000 ML IV ONE (11:44)
[2017-08-24] MEDS ORDERED: Morphine 4 MG/ML VIAL ONE ×2 (11:56→13:39)
[2017-08-24 12:31] LABS: BASO % 0.3 % (0.0-2.0); EOS % 0.2 % (0.0-4.0); HEMOGLOBIN 14.1 g/dL (11.0-16.0); LYMPH # 2.5 K/uL (1.0-4.3); LYMPH % 21.6 % (20.0-40.0); MEAN CORPUSCULAR HEMOGLOBIN 31.4 pg (27.0-31.0); MEAN CORPUSCULAR HGB CONC 35.2 g/dL (33.0-37.0); MEAN PLATELET VOLUME 7.9 fL (7.2-11.7); MONO # 1.3 K/uL (0.0-0.8); MONO % 11.6 % (0.0-10.0); NEUT # 7.5 K/uL (1.8-7.0); NEUT % 66.3 % (50.0-75.0); NRBC % 0.1 % (0.0-2.0); RBC 4.5 Mil/uL (3.80-5.20); RED CELL DISTRIBUTION WIDTH 13.1 % (11.5-14.5); WHITE BLOOD COUNT 11.4 K/uL (4.8-10.8)
--- NOTE | 2017-08-24 12:46 | RAD ---
Indication: Abdominal pain, stent placed Comparison: Abdominal radiograph performed 08/19/17 Findings: Right ureteral stent. Moderate constipation. Nonobstructive bowel gas pattern. Tiny pelvic calcifications, possibly phleboliths. No acute osseous abnormality is detected. Impression: Right ureteral stent. Moderate constipation.
[2017-08-24 13:00] LABS: ALB/GLOB RATIO 1.4 (1.0-2.1); ALBUMIN 4.6 g/dL (3.5-5.0); ALT/SGPT 43 U/L (9-52); AST/SGOT 25 U/L (14-36); BLOOD UREA NITROGEN 15 mg/dL (7-17); CALCIUM 10.2 mg/dl (8.6-10.4); GFR AFRICAN-AMERICAN > 60; GFR NON-AFRICAN AMERICAN > 60; LIPASE 120 U/L (23-300)
--- NOTE | 2017-08-24 13:14 | C.PDOC ---
History Of Present Illness 32-year-old female, presents to the emergency department with complaints of right-sided pain s/p stent placement and lithotripsy by Dr Kilgore three days ago. Patient states pain has not decreased, and she is experiencing discomfort, that is associated with trouble urinating and hematuria. Patient notes she is using a strainer but has not noted any stones. Denies any fevers, nausea/ vomiting, diarrhea, chest pain, shortness of breath, or any other associated symptoms. No other complaints at this time. Time Seen by Provider: 08/24/17 11:42 Chief Complaint (Nursing): Abdominal Pain History Per: Patient History/Exam Limitations: no limitations Onset/Duration Of Symptoms: Days Current Symptoms Are (Timing): Still Present Severity: Moderate Past Medical History Reviewed: Historical Data, Nursing Documentation, Vital Signs Vital Signs: Last Vital Signs Temp 97.5 F L 08/24/17 11:23 Pulse 74 08/24/17 15:57 Resp 16 08/24/17 15:57 BP 119/75 08/24/17 15:57 Pulse Ox 95 08/26/17 03:36 - Medical History PMH: Anxiety, Asthma (ALLERGIC), Depression, Gastritis, Hypercholesterolemia, Kidney Stones, Migraine, Pancreatitis, Chronic Kidney Disease Surgical History: Endoscopy - [facility] Procedures DILATION OF RIGHT URETER WITH INTRALUMINAL DEVICE, ENDO (08/19/17) TETANUS TOXOID ADMINIST (07/03/14) Family History: States: No Known Family Hx - Social History Hx Tobacco Use: No Hx Alcohol Use: No Hx Substance Use: No - Immunization History Hx Tetanus Toxoid Vaccination: No Hx Influenza Vaccination: Yes (2016) Hx Pneumococcal Vaccination: No Review Of Systems Except As Marked, All Systems Reviewed And Found Negative. Constitutional: Negative for: Fever, Chills, Weakness Cardiovascular: Negative for: Chest Pain Respiratory: Negative for: Cough, Shortness of Breath Gastrointestinal: Negative for: Nausea, Vomiting, Abdominal Pain Musculoskeletal: Positive for: Back Pain Skin: Negative for: Rash Neurological: Negative for: Weakness, Numbness, Headache, Dizziness Physical Exam - Physical Exam Appears: Non-toxic, No Acute Distress Skin: Normal Color, Warm, Dry, No Rash Head: Atraumatic, Normacephalic Eye(s): bilateral: Normal Inspection Ear(s): Bilateral: Normal Nose: Normal Oral Mucosa: Moist Lips: Normal Appearing Throat: No Erythema, No Exudate Neck: Normal ROM, Supple Chest: Symmetrical Cardiovascular: Rhythm Regular, No Friction Rub, No Murmur Respiratory: Normal Breath Sounds, No Accessory Muscle Use, No Rales, No Rhonchi , No Stridor, No Wheezing Gastrointestinal/Abdominal: Soft, No Tenderness, No Guarding Back: No CVA Tenderness Extremity: Normal ROM Neurological/Psych: Oriented x3, Normal Speech, Normal Motor Gait: Steady ED Course And Treatment - Laboratory Results Result Diagrams: 08/24/17 12:22 08/24/17 12:22 O2 Sat by Pulse Oximetry: 95 (RA) Pulse Ox Interpretation: Normal Medical Decision Making Medical Decision Making: Plan: * Morphine, Toradol, Zofran, UA * UA * Reassess and Disposition Case discussed with Dr Kilgore, states to discharge patient for outpatient f/u with Rx for pain meds. On re-exam, the patient reports improvement of symptoms. Lungs are CTA, heart is RRR, abdomen is sfot, non-tender and the patient is tolerating PO well. Ambulatory in the ED with steady gait. Follow up with the medical doctor within 1-2 days. Return if worsened. Disposition - Disposition Referrals: Vito Kilgore MD [Staff Provider] - Disposition: HOME/ ROUTINE Disposition Time: 15:38 Condition: GOOD Additional Instructions: fOLLOW UP WITH DR. KILGORE IN 2 DAYS WITHOUT FAIL. RETURN IF WORSENED. Prescriptions: Naproxen [Naprosyn] 500 mg PO BID #20 tab Ondansetron ODT [Zofran ODT] 1 odt PO BID PRN #6 odt PRN Reason: Nausea/Vomiting oxyCODONE/Acetaminophen [Percocet 5/325 mg Tab] 1 tab PO QID PRN #15 tab PRN Reason: Pain Instructions: Renal Colic Forms: [facility] ([place]ian) - Clinical Impression Clinical Impression: Renal colic - Scribe Statement The provider has reviewed the documentation as recorded by the Scribe (Clementina Rees) All medical record entries made by the Scribe were at my direction and personally dictated by me. I have reviewed the chart and agree that the record accurately reflects my personal performance of the history, physical exam, medical decision making, and the department course for this patient. I have also personally directed, reviewed, and agree with the discharge instructions and disposition.
[2017-08-24 15:59] VITALS: BP 119/75; PULSE 74; RESP 16
[2017-08-24 16:04] LABS: SQUAMOUS EPITHIAL 2 /hpf (0-5); URINE BACTERIA RARE (<OCC); URINE BILIRUBIN NEGATIVE (NEGATIVE); URINE BLOOD 3+ (NEGATIVE); URINE CLARITY Hazy (Clear); URINE COLOR Red (YELLOW); URINE GLUCOSE (UA) NORMAL (Normal); URINE LEUKOCYTE ESTERASE 2+ Leu/uL (Negative); URINE NITRATE NEGATIVE (NEGATIVE); URINE PROTEIN 2+ mg/dL (NEGATIVE); URINE UROBILINOGEN NORMAL mg/dL (0.2-1.0)
[2017-08-24 18:34] VITALS: O2SAT 95
== END 2017-08-24 15:57 | disposition home or self-care (01) ==
LOC: C.ER 11:13
DX: N23 Unspecified renal colic (principal); N18.9 Chronic kidney disease, unspecified
CPT/HCPCS: 74018; 80053; 81001; 83690; 85025; 87086; 96374; 96375; 96376; 99284; J1885; J2270; J2405; J7040